=== PATIENT | male | born 2000 | race African-American/Black ===

== ENCOUNTER 2020-04-08 19:28 | Emergency (ER) | payer SELFPAY ==
[~2020-04-08 19:28] MED LIST: Iopamidol-370 76% 500 ML 1 ML ONE
[2020-04-08 19:45] LABS: #Basophils 0.2 thou/uL (0.0-0.2); #Eosinphils 0.2 thou/uL (0.0-0.7); #Lymphocytes 3.7 thou/uL (1.20-3.40); #Monocytes 0.9 thou/uL (0.11-0.59); #Neutrophils 5.4 thou/uL (1.40-6.50); %Basophils 1.6 % (0.0-1.0); %Eosinophils 1.9 % (0.0-10.0); %Monocytes 8.8 % (0.0-4.0); %Neutrophils 51.7 % (31.0-61.0); Hemoglobin 15.3 g/dL (14.0-18.0); Mean Corpuscular HGB CONC 35.1 g/dL (32.0-36.0); Mean Corpuscular Hemoglobin 33.3 pg (25.0-35.0); Mean Corpuscular Volume 94.7 fL (78.0-98.0); Mean Platelet Volume 9.8 fL (7.4-10.4); Platelet Count 172 thou/uL (130-400); RBC Distribution Width 11.9 % (11.5-14.5); White Blood Cell (WBC) Count 10.4 thou/uL (4.8-10.8)
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
[2020-04-08 19:52] LABS: INR-International Normal Ratio 0.9; Prothrombin Time 12.5 sec (12.0-14.7)
[2020-04-08] MEDS ORDERED: Boostrix 0.5 ML (Tdap) VIAL ONE (19:59)
[2020-04-08 20:02] LABS: ALT (SGPT) 19 U/L (8-55); AST (SGOT) 22 U/L (10-45); Albumin 4.9 g/dL (3.5-5.0); Alkaline Phosphatase 99 U/L (50-130); Anion Gap 18 mmol/L (10-20); BUN (Urea Nitrogen) 10 mg/dL (8.4-21.0); Bilirubin, Total 0.5 mg/dL (0.2-1.2); Calc. Creatinine Clearance 0 mL/min (70-130); Carbon Dioxide 19 mmol/L (22-29); Chloride 107 mmol/L (98-107); Estimated GFR-MDRD 82; Globulin 3.5 g/dL (2.4-3.5); Glucose 101 mg/dL (70-105); Potassium 3.6 mmol/L (3.5-5.1); Protein, Total 8.4 g/dL (6.0-8.3); Sodium 140 mmol/L (136-145)
[2020-04-08] MEDS ORDERED: Fentanyl 100 MCG/2 ML VIAL ONE (20:06)
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
== END 2020-04-08 22:10 | disposition home or self-care (01) ==
LOC: EEVIPCON 19:28 → ERS 19:28
DX: S71.042A Puncture wound with foreign body, left hip, initial encounter (principal); W34.00XA Accidental discharge from unspecified firearms or gun, initial encounter
CPT/HCPCS: 36415; 72170; 75635; 80053; 83690; 85025; 85610; 85730; 86850; 86900; 86901; 90471; 90715; 96365; 96375; J0690; J3010; Q9967

== ENCOUNTER 2020-07-23 07:21 | Emergency (ER) | payer SELFPAY ==
[2020-07-23] MEDS ORDERED: Ketorolac Tromethamine 30 MG/ML VIAL ONE (07:39)
== END 2020-07-23 08:00 | disposition home or self-care (01) ==
LOC: ERS 07:21
DX: M79.602 Pain in left arm (principal); M79.601 Pain in right arm
CPT/HCPCS: 96372; 99283; J1885